=== PATIENT | female | born 1990 | race Caucasian/White ===

== ENCOUNTER 2017-02-22 18:50 | Emergency (ER) | payer OTHER ==
[~2017-02-22] VITALS: Ht 160 cm; Wt 59.0 kg
[2017-02-22] MEDS ORDERED: ACETAMINOPHEN 500MG TABLET PO ONE (23:15)
[2017-02-22 23:45] VITALS: BP 122/65
== END 2017-02-22 23:52 | disposition home or self-care (01) ==
LOC: ER 23:32
DX: L03.317 Cellulitis of buttock (principal); L02.31 Cutaneous abscess of buttock
CPT/HCPCS: 99283

== ENCOUNTER 2018-12-14 09:09 | Emergency (ER) | payer OTHER ==
[~2018-12-14] VITALS: Ht 160 cm; Wt 59.0 kg
[2018-12-14] MEDS ORDERED: SODIUM CHLORIDE 0.9% 1,000 ML IV ONE (09:18)
[2018-12-14 09:33] LABS: BASOPHILS % 0.3 % (0.0-2.0); EOSINOPHILS % 0.6 % (0.0-5.0); HEMATOCRIT. 37.2 % (36.0-48.0); HEMOGLOBIN. 12.5 g/dL (12.0-16.0); LYMPHOCYTES % 21.4 % (20.0-50.0); MEAN CORPUSCULAR HEMOGLOBIN 31.6 pg (28.0-32.0); MEAN CORPUSCULAR VOLUME 94.3 fL (81.0-99.0); MEAN PLATELET VOLUME 7.1 fl (7.4-10.4); MONOCYTES % 7.9 % (2.0-8.0); NEUTROPHILS % 69.8 % (40.0-76.0); PLATELET 271 x1000/uL (130-400); RED BLOOD CELL COUNT 3.95 mill/uL (4.2-5.4); RED CELL DISTRIBUTION WIDTH 13.4 % (11.6-14.6)
[2018-12-14 09:39] LABS: CHLORIDE 104 mEq/L (98-107)
[2018-12-14 09:40] LABS: INR 1.1; PROTHROMBIN TIME 10.7 sec (9.1-11.1)
[2018-12-14 10:00] LABS: COLOR URINE YELLOW (YELLOW); KETONES URINE NEGATIVE (NEGATIVE); LEUKOCYTE ESTERASE URINE TRACE (NEGATIVE); NITRITE URINE NEGATIVE (NEGATIVE); OCCULT BLOOD URINE 3+ (NEGATIVE); PROTEIN URINE NEGATIVE (NEGATIVE); SPECIFIC GRAVITY URINE 1.012 (1.005-1.030); UROBILINOGEN URINE 0.2 E.U./dL (0.2-1.0)
[2018-12-14 10:02] LABS: B-HCG QUANTITATIVE 22977 mIU/mL (<3)
[2018-12-14 10:05] LABS: CLARITY URINE CLOUDY (CLEAR)
[2018-12-14 10:13] LABS: *AMPHETAMINES SCREEN URINE NEGATIVE (NEGATIVE)
[2018-12-14 10:14] LABS: *BARBITURATES SCREEN URINE NEGATIVE (NEGATIVE); *BENZODIAZEPINES SCREEN URINE NEGATIVE (NEGATIVE); *COCAINE SCREEN URINE NEGATIVE (NEGATIVE); CANNABINOID URINE SCREEN NEGATIVE (NEGATIVE); METHADONE URINE SCREEN NEGATIVE (NEGATIVE); OPIATES URINE SCREEN NEGATIVE (NEGATIVE); PHENCYCLIDINE URINE SCREEN NEGATIVE (NEGATIVE)
[2018-12-14 13:33] VITALS: BP 118/71
== END 2018-12-14 13:58 | disposition home or self-care (01) ==
LOC: ER 09:09
DX: O20.0 Threatened abortion (principal); Z3A.01 Less than 8 weeks gestation of pregnancy
CPT/HCPCS: 36415; 76801; 76817; 80048; 80305; 81003; 81025; 84702; 85025; 85610; 86850; 86870; 86900; 86901; 87086; 96360; 96361; 99284; J7030

== ENCOUNTER 2019-01-06 10:01 | Emergency (ER) | payer OTHER ==
[~2019-01-06] VITALS: Ht 160 cm; Wt 89.0 kg
[2019-01-06 12:21] LABS: CLARITY URINE CLEAR (CLEAR); COLOR URINE YELLOW (YELLOW); KETONES URINE NEGATIVE (NEGATIVE); LEUKOCYTE ESTERASE URINE NEGATIVE (NEGATIVE); NITRITE URINE NEGATIVE (NEGATIVE); OCCULT BLOOD URINE NEGATIVE (NEGATIVE); PROTEIN URINE NEGATIVE (NEGATIVE); SPECIFIC GRAVITY URINE 1.007 (1.005-1.030); UROBILINOGEN URINE 0.2 E.U./dL (0.2-1.0)
[2019-01-06 13:25] VITALS: BP 120/63
[2019-01-08 04:12] LABS: CHLAMYDIA TRACHOMATIS NAA Negative (Negative); NEISSERIA GONORRHOEAE NAA Negative (Negative)
== END 2019-01-06 13:35 | disposition home or self-care (01) ==
LOC: ER 10:01
DX: N89.8 Other specified noninflammatory disorders of vagina (principal); R50.9 Fever, unspecified
CPT/HCPCS: 87210; 87491; 87591; 99283

== ENCOUNTER 2020-04-28 15:12 | Observation (INO) | payer OTHER ==
[~2020-04-28] VITALS: Ht 162.6 cm; Wt 74.4 kg
[2020-04-28] MEDS ORDERED: BETAMETHASONE ACET/BETAMET 30 MG/5 ML VIAL IM NR (16:30)
[2020-04-28] MEDS ORDERED: PREN1TAB78 MT (16:38)
== END 2020-04-28 16:45 | disposition home or self-care (01) ==
LOC: L&DPROCDR 15:12 → EDSTATUS 15:16 → UNDOADMOB 15:18 → 8 EST LDRP 15:18 → 8 EST A/PP 16:02
PROVIDERS: ADMIT Obstetrics & Gynecology; ATTEND Obstetrics & Gynecology
DX: Z34.83 Encounter for supervision of other normal pregnancy, third trimester (principal); Z3A.35 35 weeks gestation of pregnancy
CPT/HCPCS: 96372; G0378; J0702

== ENCOUNTER 2020-04-29 16:20 | Observation (INO) | payer OTHER ==
[~2020-04-29] VITALS: Ht 160 cm; Wt 74.4 kg
[~2020-04-29 16:20] MED LIST: PREN1TAB78 MT
[2020-04-29] MEDS ORDERED: BETAMETHASONE ACET/BETAMET 30 MG/5 ML VIAL IM NR (16:45)
== END 2020-04-29 16:55 | disposition home or self-care (01) ==
LOC: 8EST NSY 16:20
PROVIDERS: ADMIT Obstetrics & Gynecology; ATTEND Obstetrics & Gynecology
DX: Z34.83 Encounter for supervision of other normal pregnancy, third trimester (principal); Z3A.35 35 weeks gestation of pregnancy
CPT/HCPCS: 96372; G0378; J0702

== ENCOUNTER → 2020-05-01 | Outpatient (CLI) | payer OTHER | END | disposition home or self-care (01) | LOC: LAB 11:11 | PROVIDERS: ATTEND Obstetrics & Gynecology | DX: Z11.59 Encounter for screening for other viral diseases (principal) | CPT/HCPCS: C9803; U0003 ==